=== PATIENT | male | born 1965 | race Hispanic/Latino ===

== ENCOUNTER → 2018-06-10 | Outpatient (CLI) | payer OTHER ==
--- NOTE | 2018-06-10 13:08 | Diagnostic Imaging Report ---
EXAM: XR CHEST 2 VIEWS DATE: 06/10/2018 12:25 PM INDICATION: Annual physical exam COMPARISON: None FINDINGS: Lines and Tubes: None Heart and Mediastinum: No acute cardiomediastinal findings. Lungs and Pleura: No significant pleural effusion, pneumothorax, or focal consolidation. Bones and Soft Tissues: No acute findings. IMPRESSION: 1. No acute cardiopulmonary findings. Signed by: Dr. Andrea Tapia MD on 06/10/2018 1:04 PM
== END ==
LOC: RAD 12:05
PROVIDERS: ATTEND Internal Medicine
DX: Z00.00 Encounter for general adult medical examination without abnormal findings (principal)
CPT/HCPCS: 71046

== ENCOUNTER → 2020-03-13 | Outpatient (CLI) | payer OTHER ==
--- NOTE | 2020-03-13 15:47 | Diagnostic Imaging Report ---
EXAM: CHEST 2 VIEWS DATE: 03/13/2020 2:48 PM INDICATION: Cough COMPARISON: 06/10/2018 FINDINGS: The trachea is midline. The lungs are symmetrically expanded without evidence for large focal consolidation, pneumothorax, or significant pleural effusion. The cardiomediastinal silhouette and pulmonary vasculature are within normal limits. No acute osseous abnormality is identified. The surrounding soft tissues are unremarkable. IMPRESSION: No acute cardiopulmonary process identified. Signed by: Dr. Varun Pantoja MD on 03/13/2020 3:44 PM
== END ==
LOC: RAD 14:32
PROVIDERS: ATTEND Internal Medicine
DX: R05 Cough (principal)
CPT/HCPCS: 71046

== ENCOUNTER → 2020-06-19 | Outpatient (CLI) | payer OTHER ==
--- NOTE | 2020-06-19 13:24 | Diagnostic Imaging Report ---
Exam: CHEST 2 VIEWS Date: 06/19/2020 1:19 PM INDICATION: ^[id number] ^[id number] ^COUGH Comparison: 03/13/2020 FINDINGS: Lines/Tubes:03/13/2020 Lungs:The lungs are well inflated. No focal consolidation or pulmonary edema. Pleura:No pleural effusion. No pneumothorax. Heart/Mediastinum:The cardiomediastinal silhouette is normal in size and contour. Bones/Soft Tissues: No acute osseous abnormality. Mild multilevel degenerative changes are noted. Upper abdomen: Unremarkable. IMPRESSION: Stable exam without acute intrathoracic process. Signed by: Jason Jackson MD on 06/19/2020 1:20 PM
== END ==
LOC: RAD 12:29
PROVIDERS: ATTEND Internal Medicine
DX: R05 Cough (principal)
CPT/HCPCS: 71046